=== PATIENT | female | born 1995 | race Caucasian/White ===

== ENCOUNTER 2017-09-27 10:11 | Emergency (ER) | payer OTHER ==
[~2017-09-27] VITALS: Ht 160 cm; Wt 49.2 kg
[2017-09-27 10:13] VITALS: BP 108/58
--- NOTE | 2017-09-27 10:19 | NUR ---
Patient ambulated to bed 8. RN evaluating patient at bedside.
--- NOTE | 2017-09-27 10:20 | NUR ---
21/F BIB FAMILY C/O LOWER ABD CRAMPING 2/10 & N/V X 2 WKS WITH DIZZINESS; JUST HAD NORMAL VAG DILIVERY 06/06/2017. PT 'S ON A PEROID. HX; ANEMIA. RX; FE, MULTI VIT. SKIN IS PINK/WARM/DRY; AAOX4 WITH EVEN AND STEADY GAIT; LUNGS CLEAR BL. PT DENIES ANY FEVER, CP, SOB, OR COUGH AT THIS TIME; PATIENT STATES PAIN OF 2/10 AT THIS TIME. PATIENT POSITIONED FOR COMFORT; HOB ELEVATED; BEDRAILS UP X2; BED DOWN. ER MD MADE AWARE OF PT STATUS.
--- NOTE | 2017-09-27 10:21 | NUR ---
Dr. Kirby evaluating patient at bedside.
[2017-09-27] MEDS ORDERED: ONDANSETRON 4 MG/2 ML VIAL IVP ONE (10:25)
[2017-09-27] MEDS ORDERED: NACL 0.9% 1,000 ML IV ONE (10:25)
[2017-09-27 10:40] LABS: BASOPHILS % (AUTO) 0.4 % (0.0-2.0); EOSINOPHILS % (AUTO) 0.3 % (0.0-4.0); HEMATOCRIT 42.4 % (36-48); HEMOGLOBIN 13.6 g/dL (12.0-16.0); LYMPHOCYTES # (AUTO) 2.1 K/uL (2.5-16.5); LYMPHOCYTES % (AUTO) 27.4 % (20.5-51.1); MEAN CORPUSCULAR HEMOGLOBIN 27 pg (27-31); MEAN CORPUSCULAR HGB CONC 32 g/dL (33-37); MEAN CORPUSCULAR VOLUME 84.7 fL (80-94); MONOCYTES # (AUTO) 0.4 K/uL (0.8-1.0); MONOCYTES % (AUTO) 5.2 % (1.7-9.3); NEUTROPHILS # (AUTO) 5.1 K/uL (1.8-7.7); NEUTROPHILS % (AUTO) 66.7 % (42.2-75.2); PLATELET COUNT (AUTO) 201 K/uL (140-450); RED BLOOD CELL COUNT(AUTO) 5.01 MIL/uL (4.20-5.40); RED CELL DISTRIBUTION WIDTH 15.7 % (11.6-13.7); WHITE BLOOD COUNT (AUTO) 7.7 K/uL (4.8-10.8)
[2017-09-27 10:50] LABS: ANION GAP 14.8 (8-16); CARBON DIOXIDE 23.7 mmol/L (21-32); CREATININE 0.8 mg/dL (0.6-1.3); POTASSIUM 3.5 mmol/L (3.5-5.1)
[2017-09-27 10:56] LABS: ALBUMIN 4.4 g/dL (3.4-5.0); TOTAL BILIRUBIN 0.3 mg/dL (0.0-1.0)
[2017-09-27 12:15] VITALS: BP 112/59
== END 2017-09-27 12:15 | disposition home or self-care (01) ==
LOC: MED 10:11
DX: R11.2 Nausea with vomiting, unspecified (principal); E86.0 Dehydration; R63.0 Anorexia
CPT/HCPCS: 36415; 80053; 81002; 81025; 85025; 96361; 96374; 99284; J2405; J7030

== ENCOUNTER 2017-09-29 07:08 | Observation (INO) | payer OTHER ==
[~2017-09-29] VITALS: Ht 160 cm; Wt 49.9 kg
[2017-09-29 07:15] VITALS: BP 116/65
--- NOTE | 2017-09-29 07:18 | NUR ---
TO BED # 8 AMBULATORY.
--- NOTE | 2017-09-29 07:34 | NUR ---
PATIENT PRESENTS TO ED WITH N/V, DIARRHEA FOR 3 WEEKS; WAS SEEN HERE ON 08/28 AND 08/29 FOR THE SAME S/S; INSTRUCTED TO COME BACK IF S/S PERSISTE; SKIN IS PINK/WARM/DRY; AAOX4 WITH EVEN AND STEADY GAIT; LUNGS CLEAR BL; HR EVEN AND REGULAR; PT DENIES ANY FEVER, CP, SOB, OR COUGH AT THIS TIME; PATIENT STATES PAIN OF 4/10 AT THIS TIME; VSS; PATIENT POSITIONED FOR COMFORT; HOB ELEVATED; BEDRAILS UP X2; BED DOWN. ER MD MADE AWARE OF PT STATUS.
[2017-09-29] MEDS ORDERED: METOCLOPRAMIDE 10 MG/2 ML INJ VIAL IVP ONE (08:25)
[2017-09-29] MEDS ORDERED: NACL 0.9% 1,000 ML IV ONE ×2 (08:25→09:30)
[2017-09-29] MEDS ORDERED: metroNIDAZOLE 500 MG TAB PO ONE (08:25)
[2017-09-29] MEDS ORDERED: cefTRIAXone 1,000 MG VIAL ONE (08:33)
--- NOTE | 2017-09-29 08:43 | NUR ---
lab at bedside
[2017-09-29 09:00] LABS: BASOPHILS % (AUTO) 0.4 % (0.0-2.0); EOSINOPHILS % (AUTO) 0.1 % (0.0-4.0); HEMATOCRIT 41.8 % (36-48); HEMOGLOBIN 13.7 g/dL (12.0-16.0); LYMPHOCYTES # (AUTO) 0.9 K/uL (2.5-16.5); LYMPHOCYTES % (AUTO) 10.4 % (20.5-51.1); MEAN CORPUSCULAR HEMOGLOBIN 27 pg (27-31); MEAN CORPUSCULAR HGB CONC 33 g/dL (33-37); MEAN CORPUSCULAR VOLUME 83.2 fL (80-94); MONOCYTES # (AUTO) 0.4 K/uL (0.8-1.0); MONOCYTES % (AUTO) 4.5 % (1.7-9.3); NEUTROPHILS # (AUTO) 7.3 K/uL (1.8-7.7); NEUTROPHILS % (AUTO) 84.6 % (42.2-75.2); PLATELET COUNT (AUTO) 178 K/uL (140-450); RED BLOOD CELL COUNT(AUTO) 5.03 MIL/uL (4.20-5.40); RED CELL DISTRIBUTION WIDTH 15.4 % (11.6-13.7); WHITE BLOOD COUNT (AUTO) 8.6 K/uL (4.8-10.8)
[2017-09-29 09:05] LABS: CARBON DIOXIDE 23.6 mmol/L (21-32); CREATININE 0.7 mg/dL (0.6-1.3); POTASSIUM 3.6 mmol/L (3.5-5.1)
[2017-09-29 09:10] LABS: ALBUMIN 4.3 g/dL (3.4-5.0); TOTAL BILIRUBIN 0.5 mg/dL (0.0-1.0)
[2017-09-29 09:36] LABS: APPEARANCE,URINE CLEAR (CLEAR); BILIRUBIN,URINE NEGATIVE (NEGATIVE); BLOOD, URINE NEGATIVE (NEGATIVE); COLOR,URINE YELLOW (YELLOW); LEUKOCYTE ESTERASE ,URINE NEGATIVE (NEGATIVE); NITRITE, URINE NEGATIVE (NEGATIVE); UGLUCOSE NEGATIVE (NEGATIVE)
[2017-09-29] MEDS ORDERED: ONDANSETRON 4 MG/2 ML VIAL IVP ONE ×2 (09:40→11:20)
[2017-09-29 09:41] LABS: BARBITURATE, URINE NEG. ng/ml (NEG <=200); BENZODIAZEPINE, URINE NEG. ng/mL (NEG <=200); CANNABINOID, URINE POS. ng/mL (NEG <=50); COCAINE, URINE NEG. ng/mL (NEG <=300); OPIATE, URINE NEG. ng/mL (NEG <=2000); PHENCYCLIDINE SCREEN,URINE NEG. ng/mL (NEG <=25)
--- NOTE | 2017-09-29 09:44 | NUR ---
PT AMBULATES TO THE RESTROOM FOR STOOL SAMPLE
[2017-09-29 10:13] LABS: RBC,URINE NONE SEEN /HPF (0-5); WBC,URINE 0-5 (RARE) /HPF (0-5)
--- NOTE | 2017-09-29 10:34 | NUR ---
PER PT "FEELS BETTER", NO C/O NAUSEA OR VOMITING AT THIS TIME, INFORMED WILL BE ADMITTED, WILL CONTINUE TO MONITOR
--- NOTE | 2017-09-29 11:18 | NUR ---
AAO PT AMBULATES TO THE RESTROOM
[2017-09-29] MEDS ORDERED: ACETAMINOPHEN 325 MG TAB PO PRN (11:20)
[2017-09-29] MEDS ORDERED: ONDANSETRON 4 MG/2 ML VIAL IVP PRN (11:20)
[2017-09-29] MEDS ORDERED: MORPHINE SULFATE 4 MG/ML SYR IVP PRN (11:20)
[2017-09-29] MEDS ORDERED: NACL 0.9% 1,000 ML IV SCH (11:20)
--- NOTE | 2017-09-29 11:50 | NUR ---
ADMITTED A PT VIA A WHEELCHAIR, PT IS AWAKE AND ALERT WITH AN IV LINE ON LEFT AC, G.20, SALINE LOCK. VITAL SIGNS TAKEN AND PT IS STABLE AT THIS TIME. PT JUST FEELS NAUSEATED. SIDE RAILS ARE UP AND CALL LIGHT WITHIN REACH. NO OTHER SIGN OF DISCOMFORT NOTED. WILL MONITOR.
[2017-09-29 11:55] VITALS: BP 113/72
--- NOTE | 2017-09-29 11:55 | NUR ---
Patient will be admitted to care of DR BLACKMAN. Admited to [facility] [address]. Belongings list completed. Report to HARLEY JOVEL.
--- NOTE | 2017-09-29 13:00 | NUR ---
PT IS AWAKE LYING ON THE BED, WITH FAMILY MEMBER ON THE BEDSIDE. CALL LIGHT WITHIN REACH AND NO SIGN OF DISTRESS NOTED. WILL MONITOR.
--- NOTE | 2017-09-29 13:20 | NUR ---
PT IS AWAKE AND SEEATED ON THE BED WITH FAMILY MEMBER ON THE BEDSIDE. PT VERBALIZED THAT SHE IS NAUSEATED. MEDICATION GIVEN AND PT TOLERATED IT. NO OTHER SIGN OF DISCOMFORT NOTED. CALL LIGHT WITHIN REACH. WILL MONITOR.
--- NOTE | 2017-09-29 14:30 | NUR ---
PT WAS SEEN BY DR. BLACKMAN.
--- NOTE | 2017-09-29 15:30 | NUR ---
PT IS AWAKE AND SPOKE TO ME OF HER WANTING TO GO HOME BECAUSE SHE SAID SHE ASKED THE DR. BLACKMNA IF THERE WILL STILL BE TESTS TO BE DONE ON HER BUT MD SAID NONE SO THE PT SAID SHE JUST WANTS TO LEAVE AND GO HOME.
--- NOTE | 2017-09-29 15:40 | NUR ---
INFORMED DR. BLACKMAN THAT THE PT WANTS TO GO HOME. DR. BLACKMAN TO TELL THE PT IF PT TOLERATED HER FOOD AND NO SIGN OF VOMITING, HE WILL DISCHARGE HER.
--- NOTE | 2017-09-29 15:50 | NUR ---
PT VERBALUIZED THAT SHE TOLERATED HER FOOD AND NO VOMITING. RELAYED TO DR. BLACKMAN AND MD SAID THAT HE WILL DISCHARGE THE PT.
[2017-09-29] MEDS ORDERED: ONDA4TAB PO (16:16)
--- NOTE | 2017-09-29 16:16 | NUR ---
DISCHARGE ORDER WAS PLACED BY DR. BLACKMAN FOR THE PT. WILL FACILITATE DISCHARGE PROCESS.
--- NOTE | 2017-09-29 16:30 | NUR ---
NS AT 100ML/HR FINISHED. NO REACTION NOTED ON THE PT.
--- NOTE | 2017-09-29 16:30 | NUR ---
INFORMED PT OF THE DISCHARGE ORDER. PT WANTS THE IV TO BE REMOVED NOW AND IV REMOVAL WAS DONE.
--- NOTE | 2017-09-29 18:00 | NUR ---
DISCHARGED PT VIA WHEELCHAIR BEING WHEELED BY LOVE, AND WITH THE FAMILY MEMBERS, ARM BAND REMOVED AND PT IS STABLE AT THIS TIME.
--- NOTE | 2017-10-02 10:30 | NUR ---
PER REQUEST OF KAUSHIK FAXED ER REPORT AND H&P TO HER AT [phone] PHONE [phone]
== END 2017-09-29 18:00 | disposition home or self-care (01) ==
LOC: MED 07:08 → MTU 11:38
PROVIDERS: ADMIT Internal Medicine; ATTEND Internal Medicine
DX: K52.9 Noninfective gastroenteritis and colitis, unspecified (principal); R11.2 Nausea with vomiting, unspecified; R19.7 Diarrhea, unspecified
CPT/HCPCS: 36415; 80053; 80305; 81001; 82150; 83605; 83690; 84703; 85025; 87015; 87040; 87045; 87070; 87177; 87427; 87804; 96361; 96365; 96375; 96376; 99285; G0378; J0696; J2405; J2765; J7030; J7060